=== PATIENT | female | born 1935 | race Caucasian/White ===

== ENCOUNTER 2018-02-02 08:45 | Emergency (ER) | payer MEDICARE, OTHER | END 2018-02-02 11:49 | disposition home or self-care (01) | LOC: E/R 08:45 | DX: Z43.1 Encounter for attention to gastrostomy (principal); I10 Essential (primary) hypertension | CPT/HCPCS: 99284 ==

== ENCOUNTER 2018-11-12 00:25 | Emergency (ER) | payer MEDICARE, OTHER ==
[2018-11-12] MEDS: DIATR MEGLU/DIATRIZOATE SODIUM 30 ML SOLUTION PO (01:13)
[2018-11-12] MEDS: DIATR MEGLU/DIATRIZOATE SODIUM 120 ML BTL (01:14)
== END 2018-11-12 03:30 | disposition home or self-care (01) ==
LOC: E/R 00:25
DX: K94.23 Gastrostomy malfunction (principal); G93.40 Encephalopathy, unspecified; I10 Essential (primary) hypertension; Z86.73 Personal history of transient ischemic attack (TIA), and cerebral infarction without residual deficits
CPT/HCPCS: 43760; 74018; 99283-25